=== PATIENT | male | born 2000 | race Hispanic/Latino ===

== ENCOUNTER 2024-11-29 18:23 | Emergency (ER) | payer SELFPAY ==
[2024-11-29 18:32] VITALS: BP 104/85
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
[2024-11-29 20:34] VITALS: BP 113/73
== END 2024-11-29 21:19 | disposition home or self-care (01) ==
LOC: EMR 18:23
PROVIDERS: EMERGENCY PHYSICIAN Student in an Organized Health Care Education/Training Program
DX: Z04.1 Encounter for examination and observation following transport accident (principal); V49.40XA Driver injured in collision with unspecified motor vehicles in traffic accident, initial encounter; Y92.410 Unspecified street and highway as the place of occurrence of the external cause; Z65.3 Problems related to other legal circumstances
CPT/HCPCS: 99281